=== PATIENT | female | born 1995 | race Hispanic/Latino ===

== ENCOUNTER 2023-10-16 12:10 | Emergency (ER) | payer SELFPAY ==
[~2023-10-16] VITALS: Ht 154.9 cm; Wt 65.7 kg
[2023-10-16] MEDS ORDERED: ZYRTEC10 MG PO (13:32)
[2023-10-16] MEDS ORDERED: BENZONATATE200 MG PO (13:32)
== END 2023-10-16 14:02 | disposition home or self-care (01) | DRG 179 ==
LOC: ED 12:10
DX: U07.1 COVID-19 (principal); R05.9 Cough, unspecified; R50.9 Fever, unspecified; J02.9 Acute pharyngitis, unspecified; H92.09 Otalgia, unspecified ear; E11.9 Type 2 diabetes mellitus without complications